=== PATIENT | female | born 1975 | race Caucasian/White ===

== ENCOUNTER 2018-02-14 21:04 | Emergency (ER) | payer SELFPAY ==
--- NOTE | 2018-02-14 21:29 | ED PDOC ---
Arrival/HPI <Geoff Lagunas - Last Filed: 02/14/18 21:59> - General Historian: Patient - History of Present Illness Narrative History of Present Illness (Text): 02/14/18 21:25 42 y/o female, no significant pmh, nkda, c/o lt. ankle pain s/p inversion injury while walking about 4 hours ago. Aching pain, aggravated by walking, no numbness or tingling, no calf pain, no rash, no chest pain or palpitation, no other medical or psychological complaints. <Carlos August - Last Filed: 02/14/18 22:10> - General Chief Complaint: Lower Extremity Problem/Injury Past Medical History - Provider Review Nursing Documentation Reviewed: Yes - Infectious Disease Hx of Infectious Diseases: None - Cardiac Hx Cardiac Disorders: No - Pulmonary Hx Respiratory Disorders: No - Neurological Hx Neurological Disorder: No - HEENT Hx HEENT Disorder: No - Renal Hx Renal Disorder: No - Endocrine/Metabolic Hx Endocrine Disorders: No - Hematological/Oncological Hx Blood Disorders: No - Integumentary Hx Dermatological Disorder: No - Musculoskeletal/Rheumatological Hx Musculoskeletal Disorders: No - Gastrointestinal Hx Gastrointestinal Disorders: No - Genitourinary/Gynecological Hx Genitourinary Disorders: No - Psychiatric Hx Psychophysiologic Disorder: No Hx Substance Use: No - Surgical History Hx Appendectomy: Yes Hx Hysterectomy: Yes <Carlos August - Last Filed: 02/14/18 22:10> Family/Social History - Physician Review Nursing Documentation Reviewed: Yes Family/Social History: Unknown Family HX Smoking Status: Never Smoked Hx Alcohol Use: No Hx Substance Use: No <Carlos August - Last Filed: 02/14/18 22:10> Allergies/Home Meds <Geoff Lagunas - Last Filed: 02/14/18 21:59> <Carlos August - Last Filed: 02/14/18 22:10> Allergies/Adverse Reactions: Allergies No Known Allergies Allergy (Verified 02/14/18 21:17) Review of Systems - Review of Systems Constitutional: absent: Fatigue, Fevers Eyes: absent: Vision Changes ENT: absent: Hearing Changes Respiratory: absent: SOB, Cough Cardiovascular: absent: Chest Pain Gastrointestinal: absent: Abdominal Pain, Nausea, Vomiting Musculoskeletal: Arthralgias, Joint Swelling. absent: Back Pain, Neck Pain, Myalgias Skin: absent: Rash, Pruritis Psychiatric: absent: Anxiety, Depression, Suicidal Ideation <Carlos Augsut - Last Filed: 02/14/18 22:10> Physical Exam Vital Signs Temp Pulse Resp BP Pulse Ox 02/14/18 21:18 98.2 F 75 16 138/85 97 <BeboGeoff - Last Filed: 02/14/18 21:59> Vital Signs Reviewed: Yes Vital Signs Temp Pulse Resp BP Pulse Ox 02/14/18 21:18 98.2 F 75 16 138/85 97 Temperature: Afebrile Blood Pressure: Normal Pulse: Regular Respiratory Rate: Normal Appearance: Positive for: Well-Appearing, Non-Toxic, Comfortable Pain Distress: Mild Mental Status: Positive for: Alert and Oriented X 3 - Systems Exam Head: Present: Atraumatic, Normocephalic Pupils: Present: PERRL Extroacular Muscles: Present: EOMI Conjunctiva: Present: Normal Mouth: Present: Moist Mucous Membranes Neck: Present: Normal Range of Motion Respiratory/Chest: Present: Clear to Auscultation, Good Air Exchange. No: Respiratory Distress, Accessory Muscle Use Cardiovascular: Present: Regular Rate and Rhythm, Normal S1, S2. No: Murmurs Abdomen: No: Tenderness, Distention, Peritoneal Signs Back: Present: Normal Inspection Upper Extremity: Present: Normal Inspection. No: Cyanosis, Edema Lower Extremity: Present: Normal Inspection, Other (Lt. ankle/foot: +ttp and mild swelling on the lateral malleolus, no foot tenderness or swelling, negative yvonne and allred signs, FROM without limitation, sensation intact, motor 5/5, +DPPT pulses, capillary refill< 2 seconds, neurovascular intact. ). No: Edema Neurological: Present: GCS=15, CN II-XII Intact, Speech Normal Skin: Present: Warm, Dry, Normal Color. No: Rashes Psychiatric: Present: Alert, Oriented x 3, Normal Insight, Normal Concentration <Carlos August - Last Filed: 02/14/18 22:10> Medical Decision Making - RAD Interpretation Radiology Orders: 02/14/18 21:25 ANKLE LEFT 3 VIEWS ROUTINE [RAD] Stat - Medication Orders Current Medication Orders: Discontinued Medications Ibuprofen (Motrin Tab) 600 mg PO STAT STA Stop: 02/14/18 21:39 Last Admin: 02/14/18 21:54 Dose: 600 mg MAR Pain/Vitals Document 02/14/18 21:54 LA (Rec: 02/14/18 21:54 LA [id number]) Pain Reassessment Is This A Pain ReAssessment? No Sleep Is patient sleeping during reassessment? No Presence of Pain Presence of Pain Yes Location Left, Right or Bilateral Left Pain Location Body Site Ankle <Geoff Lagunas - Last Filed: 02/14/18 21:59> ED Course and Treatment: 02/14/18 21:30 -Lt. ankle xray -Pain med -Observe and reassess 02/14/18 22:09 -Urine hcg is negative -Lt. ankle show mild swelling lateral malleolus, no fracture or dislocation -Pain decreased, offered splint but she refused, will apply ronak wrap and -Discharge home with motrin, ronak wrap, crutches, non-weight bearing, follow up with your own pmd and orthopedic within 2 days, return to the ER for any new or worsening signs or symptoms. - RAD Interpretation Radiology Orders: 02/14/18 21:25 ANKLE LEFT 3 VIEWS ROUTINE [RAD] Stat <Carlos August - Last Filed: 02/14/18 22:10> - PA / JIRA ADMINISTRATOR / Resident Statement AIDEN has reviewed & agrees with the documentation as recorded. <Geoff Lagunas - Last Filed: 02/14/18 21:59> - PA / JIRA ADMINISTRATOR / Resident Statement AIDEN has reviewed & agrees with the documentation as recorded. <Carlos August - Last Filed: 02/14/18 22:10> Disposition/Present on Arrival <Geoff Lagunas - Last Filed: 02/14/18 21:59> - Present on Arrival Any Indicators Present on Arrival: No History of DVT/PE: No History of Uncontrolled Diabetes: No Urinary Catheter: No History of Decub. Ulcer: No History Surgical Site Infection Following: None - Disposition Have Diagnosis and Disposition been Completed?: Yes Disposition Time: 22:09 Patient Plan: Discharge <Carlos August - Last Filed: 02/14/18 22:10> - Disposition Diagnosis: Ankle injury, Ankle pain Disposition: HOME/ ROUTINE Patient Problems: Current Active Problems Problem Status Onset Ankle injury Acute Ankle pain Acute Condition: IMPROVED Additional Instructions: -Discharge home with motrin, ronak wrap, crutches, non-weight bearing, follow up with your own pmd and orthopedic within 2 days, return to the ER for any new or worsening signs or symptoms. Prescriptions: Ibuprofen [Motrin] 600 mg PO QID PRN #30 tab PRN Reason: Other Referrals: Aleisha Vang MD [Staff Provider] - Follow up with primary [facility] [Outside] - Follow up with primary Forms: [employer] ([place]), WORK NOTE
[2018-02-14 21:34] VITALS: BP 138/85; PULSE 75; RESP 16; TEMP 98.2; O2SAT 97; BMI 30.1
--- NOTE | 2018-02-15 12:57 | RAD ---
Date of service: 02/14/2018 PROCEDURE: Left Ankle Radiographs. HISTORY: lt. ankle pain s/p twisting injury COMPARISON: None available. FINDINGS: BONES: Normal. No fracture. JOINTS: Normal. No osteoarthritis. Ankle mortise maintained. Talar dome intact SOFT TISSUES: Normal. OTHER FINDINGS: None. IMPRESSION: Normal left ankle radiographs.
== END 2018-02-14 22:32 | disposition home or self-care (01) ==
LOC: ED 21:04
DX: S99.912A Unspecified injury of left ankle, initial encounter (principal); X50.9XXA Other and unspecified overexertion or strenuous movements or postures, initial encounter; Y93.01 Activity, walking, marching and hiking